=== PATIENT | female | born 1985 | race Caucasian/White ===

== ENCOUNTER 2024-07-06 01:42 | Emergency (ER) | payer BC ==
[~2024-07-06] VITALS: Ht 165.1 cm; Wt 105.0 kg
[2024-07-06 02:05] LABS: BASOPHILS 0.5 % (0-2); EOSINOPHILS 1.5 % (0-6); HEMATOCRIT 40.6 % (35.0-50.0); HEMOGLOBIN 13.7 g/dL (12.0-18.0); LYMPHOCYTES 43.2 % (24-44); MCH 29.5 (27-36); MCHC 33.7 g/dl (30-36); MCV 87.3 fl (81-99); MONOCYTES 6.5 % (0-12); NEUTROPHILS 48.3 % (39-80); PLATELET COUNT 324 K/uL (140-440); RBC 4.65 M/ul (4.3-5.7); RDW 13.9 (10.5-15.0)
[2024-07-06] MEDS ORDERED: SODIUM CHLORIDE 0.9% 1,000 ML IV ONE (02:15)
[2024-07-06] MEDS ORDERED: ondansetron HCL 4 MG/2 ML VIAL IV ONE (02:15)
[2024-07-06] MEDS ORDERED: MORPHINE SULFATE 4 MG/ML VIAL IV ONE (02:15)
[2024-07-06] MEDS ORDERED: KETOROLAC TROMETHAMINE 30 MG/ML VIAL IV ONE (02:15)
[2024-07-06 02:29] LABS: ALBUMIN 3.7 g/dL (3.4-5.0); ALBUMIN/GLOBULIN RATIO 0.86 (1.1-2.4); ANION GAP 14.5 (7-21); BILIRUBIN, TOTAL 0.3 ng/dL (0.2-1.0); BUN/CREATININE RATIO 18.05 (6.0-28.6); CALCIUM 9.3 mg/dL (8.5-10.1); CREATININE, SERUM 0.72 mg/dL (0.55-1.02); POTASSIUM 3.5 mmol/L (3.5-5.1)
[2024-07-06 03:03] LABS: BILIRUBIN, URINE NEGATIVE (negative); BLOOD/HGB, URINE NEGATIVE (Negative); KETONE, URINE NEGATIVE (Negative); LEUK ESTERASE, URINE NEGATIVE (negative); NITRITE, URINE NEGATIVE (negative)
[2024-07-06] MEDS ORDERED: ONDANSETRON ODT8 MG PO (03:14)
[2024-07-06] MEDS ORDERED: HYDROCODON-ACE1 EA10 PO (03:14)
[2024-07-06] MEDS ORDERED: ONDANSETRON 4 MG HOME.PACK SL ONE (03:30)
[2024-07-06] MEDS ORDERED: HYDROCODONE BIT/ACETAMINOPHEN 5/325 MG 1 TAB HOME.PACK PO ONE (03:30)
[2024-07-06 03:51] VITALS: BP 125/75
== END 2024-07-06 03:52 | disposition home or self-care (01) ==
LOC: ED 01:42
PROVIDERS: Family Medicine
DX: K80.70 Calculus of gallbladder and bile duct without cholecystitis without obstruction (principal); N20.0 Calculus of kidney
CPT/HCPCS: 36415; 74176; 80053; 81003; 83690; 84703; 85025; 96374; 96375; 99284-25; A9270; J1885; J2270; J2405; J7030